=== PATIENT | male | born 1970 | race Two or more races ===

== ENCOUNTER 2022-08-15 11:46 | Outpatient (CLI) | payer OTHER | END 2022-08-15 23:59 | disposition home or self-care (01) | LOC: LAB 11:46 | PROVIDERS: ATTEND Surgery | DX: Z01.812 Encounter for preprocedural laboratory examination (principal); Z20.822 Contact with and (suspected) exposure to COVID-19 | CPT/HCPCS: U0003; C9803 ==

== ENCOUNTER 2022-08-19 06:25 | Day surgery (SDC) | payer OTHER ==
[2022-08-19] MEDS ORDERED: BUPIVACAINE 0.5 % PF 150 MG/30 ML VIAL ONE (07:41)
[2022-08-19] MEDS ORDERED: LIDOCAINE HCL/MPF 1% 30 ML VIAL IJ ONE (07:42)
[2022-08-19] MEDS ORDERED: ANESTHESIA TRAY IN PYXIS 1 EA TRAY MC ONE (07:42)
[2022-08-19] MEDS ORDERED: FENTANYL PF 100MCG/2ML AMPUL ONE (07:46)
[2022-08-19] MEDS ORDERED: ROCURONIUM BROMIDE 50 MG/5 ML ONE (07:47)
[2022-08-19] MEDS ORDERED: BUPIVACAINE MPF W/EPI 0.25% 30 ML VIAL ONE (09:11)
== END 2022-08-19 11:15 | disposition home or self-care (01) ==
LOC: DS 06:25
PROVIDERS: ATTEND Surgery
DX: D24.2 Benign neoplasm of left breast (principal); N64.89 Other specified disorders of breast; I10 Essential (primary) hypertension; Z98.890 Other specified postprocedural states; Z79.899 Other long term (current) drug therapy
CPT/HCPCS: 19316; 19301; J3010; J3490; J0330; J0690; J1100; J1885; J2405; J2704; J7030